=== PATIENT | male | born 1995 | race Caucasian/White ===

== ENCOUNTER 2017-01-28 21:54 | Emergency (ER) | payer OTHER | END 2017-01-28 22:17 | disposition left against medical advice (07) | LOC: ER1 21:54 | DX: Z53.21 Procedure and treatment not carried out due to patient leaving prior to being seen by health care provider (principal) ==

== ENCOUNTER 2017-04-15 22:14 | Emergency (ER) | payer OTHER | END 2017-04-16 02:29 | disposition home or self-care (01) | LOC: ER1 22:14 | DX: H66.91 Otitis media, unspecified, right ear (principal); F90.9 Attention-deficit hyperactivity disorder, unspecified type | CPT/HCPCS: 99282 ==

== ENCOUNTER → 2021-01-16 | Outpatient (CLI) | payer OTHER ==
[~2021-01-16] MED LIST: BACTROBAN OINT22 GM EXT; ERYTHROMYCIN OP1 GM OP; MIRALAX17 GM PO
[2021-01-16 13:47] LABS: HEMOGLOBIN 16.3 gm/dl (14.0-17.5); RED BLOOD COUNT 5.37 M/UL (4.20-5.50); WHITE BLOOD COUNT 6.3 K/UL (4.5-11.0)
[2021-01-16 14:21] LABS: BUN/CREATININE RATIO 22 (0-10)
== END ==
LOC: LAB 13:05
PROVIDERS: Internal Medicine
DX: K76.0 Fatty (change of) liver, not elsewhere classified (principal)
CPT/HCPCS: 36415; 80053; 80061; 83036; 85027